=== PATIENT | female | born 1960 | race Caucasian/White ===

== ENCOUNTER 2021-09-02 18:45 | Emergency (ER) | payer BC ==
[2021-09-02 19:55] LABS: CHLORIDE,CL 103 mmol/L (98-107); SODIUM,NA 141 mmol/L (136-145)
[2021-09-02 19:56] LABS: ANION GAP 14.4 mmol/L (5-15)
--- NOTE | 2021-09-02 20:23 | CT ---
[id number] CT/CT Abdomen Pelvis WO IV EXAM: CT Abdomen Pelvis WO IV CLINICAL DATA: LT SIDED FLANK PAIN, HEMATURIA COMPARISON STUDY: March 08, 2020. FINDINGS: Lung bases are clear. The gallbladder is surgically absent. The liver, spleen, pancreas, adrenal glands are unremarkable. The appendix is visualized and appears normal. Colonic diverticulosis. Within the distal descending colon as well as the distal sigmoid colon there are few areas of pericolonic stranding in the region of diverticula. Additionally in the region of the descending: There is associated free fluid. No drainable fluid collection is identified. No free air. Scattered changes of spondylosis the spine. No fracture or osseous lesion. IMPRESSION: Acute uncomplicated descending colon and sigmoid diverticulitis. Wander Wolfe DO 09/02/212020 Thank you for allowing us to participate in the care of your patient.
[2021-09-02] MEDS ORDERED: Take Home: metroNIDAZOLE 500 MG Tab, 4 Tab Pack PO ONE (21:13)
[2021-09-02] MEDS ORDERED: Take Home: Ciprofloxacin 500 MG Tab, 2 Tab Pack PO ONE (21:13)
--- NOTE | 2021-09-02 21:48 | EDM.PDOC ---
ED HPI GENERAL MEDICAL PROBLEM - General Stated Complaint: PAIN ON L SIDE Time Seen by Provider: 09/02/21 19:40 Source of Information: Reports: Patient History Limitations: Reports: No Limitations - History of Present Illness INITIAL COMMENTS - FREE TEXT/NARRATIVE: Pt. presents to ER with complaints of L sided abdominal pain. Pt. states that the discomfort started shortly before presenting to the ER. She states that the discomfort is worse with movement and palpation. Pt. denies any dysuria or hematuria. Denies any chest pain or shortness of breath. No cough. No jaw, arm, neck or back pain. She denies any melena, hematochezia, or hematemesis. No nausea, vomiting, or diarrhea. Pt. denies any ill contacts. Onset: Today Onset Date: 09/02/21 Location: Reports: Abdomen Quality: Reports: Ache, Burning Severity: Moderate Associated Symptoms: Denies: Fever/Chills, Malaise Left Flank Pain Score (Numeric/FACES): 8 - Related Data Allergies Allergy/AdvReac Type Severity Reaction Status Date / Time penicillin Allergy Rash Verified 08/07/18 11:46 aspirin AdvReac Bleeding Verified 03/08/20 09:08 Home Meds: Home Meds Levothyroxine 75 mcg PO DAILY 05/19/15 [History] metFORMIN [Glucophage XR] 500 mg PO WITHDINNER 01/06/16 [History] Past Medical History Genitourinary History: Reports: UTI, Recurrent Endocrine/Metabolic History: Reports: Hypothyroidism ED ROS GENERAL - Review of Systems Review Of Systems: See Below Constitutional: Reports: No Symptoms. Denies: Fever, Chills, Malaise, Weakness, Fatigue HEENT: Reports: No Symptoms Respiratory: Reports: No Symptoms Cardiovascular: Reports: No Symptoms Endocrine: Reports: No Symptoms GI/Abdominal: Reports: Abdominal Pain. Denies: Black Stool, Bloody Stool, Constipation, Diarrhea, Distension, Hematemesis, Hematochezia, Melena, Nausea, Vomiting : Reports: No Symptoms Musculoskeletal: Reports: No Symptoms Skin: Reports: No Symptoms Neurological: Reports: No Symptoms Psychiatric: Reports: No Symptoms Hematologic/Lymphatic: Reports: No Symptoms Immunologic: Reports: No Symptoms ED EXAM, GENERAL - Physical Exam Exam: See Below Exam Limited By: No Limitations General Appearance: Alert, WD/WN, No Apparent Distress Respiratory/Chest: No Respiratory Distress, Lungs Clear, Normal Breath Sounds, No Accessory Muscle Use, Chest Non-Tender Cardiovascular: Normal Peripheral Pulses, Regular Rate, Rhythm, No Edema, No JVD, No Murmur Peripheral Pulses: 4+: Radial (L) GI/Abdominal: Soft, No Distention, No Mass, Tender, Other (No guarding or rebound. Area is diffusely tender to palpation. ) (Female) Exam: Deferred Rectal (Female) Exam: Deferred Back Exam: Normal Inspection, Full Range of Motion Extremities: Normal Inspection, Normal Range of Motion, Non-Tender, No Pedal Edema, Normal Capillary Refill Neurological: Alert, Oriented, CN II-XII Intact, Normal Cognition, Normal Reflexes, No Motor/Sensory Deficits Psychiatric: Normal Affect, Normal Mood Skin Exam: Warm, Dry, Intact, Normal Color, No Rash Course - Vital Signs Last Recorded V/S: Last Vital Signs Temp 37.0 C 09/02/21 19:40 Pulse 98 09/02/21 19:40 Resp 16 09/02/21 19:40 BP 138/85 09/02/21 19:40 Pulse Ox 97 09/02/21 19:40 - Orders/Labs/Meds Orders: Active Orders 24 hr Category Date Time Status CULTURE URINE [RM] Stat Lab 09/02/21 19:21 Received Labs: Laboratory Tests 09/02/21 09/02/21 09/02/21 Range/Units 19:21 19:29 19:29 WBC 12.4 H (4.0-10.0) x10^3/uL RBC 4.98 (4.00-5.50) x10^6/uL Hgb 14.3 (12.0-16.0) g/dL Hct 43.0 (33.0-47.0) % MCV 86.3 (78.0-93.0) fL MCH 28.7 (26.0-32.0) pg MCHC 33.3 (32.0-36.0) g/dL RDW Coeff of Bella 13.1 (10.0-15.0) % Plt Count 277 (130-400) x10^3/uL Immature Gran % (Auto) 0.20 (0.00-0.43) % Neut % (Auto) 76.0 (50.0-80.0) % Lymph % (Auto) 14.7 L (25.0-50.0) % Upton % (Auto) 7.8 (2.0-11.0) % Eos % (Auto) 1.0 (0.0-4.0) % Baso % (Auto) 0.3 (0.2-1.2) % Neut # (Auto) 9.5 H (1.8-7.7) x10^3/uL Lymph # (Auto) 1.8 (1.0-4.8) x10^3/uL Upton # (Auto) 1.0 H (0.0-0.8) x10^3/uL Eos # (Auto) 0.1 (0.0-0.5) x10^3/uL Baso # (Auto) 0.0 (0.0-0.2) x10^3/uL Immature Gran # (Auto) 0.02 (0.00-0.07) x10^3/uL Sodium 141 (136-145) mmol/L Potassium 4.4 (3.5-5.1) mmol/L Chloride 103 (98-107) mmol/L Carbon Dioxide 28 (21-32) mmol/L Anion Gap 14.4 (5-15) mmol/L BUN 14 (7-18) mg/dL Creatinine 0.7 (0.55-1.02) mg/dL Est Cr Clr Drug Dosing TNP Estimated GFR (MDRD) > 60 Glucose 113 H (70-99) mg/dL Calcium 9.3 (8.5-10.1) mg/dL Corrected Calcium 9.5 (8.5-10.1) mg/dL Phosphorus 3.7 (2.6-4.7) mg/dL Magnesium 2.2 (1.8-2.4) mg/dL Total Bilirubin 1.0 (0.2-1.0) mg/dL AST 27 (15-37) U/L ALT 55 (14-59) U/L Alkaline Phosphatase 123 H (46-116) U/L C-Reactive Protein 3.3 H (<=0.9) mg/dL Total Protein 7.7 (6.4-8.2) g/dL Albumin 3.8 (3.4-5.0) g/dL Globulin 3.9 Albumin/Globulin Ratio 0.97 Urine Color Light yellow (YELLOW) Urine Appearance Slightly cloudy H (CLEAR) Urine pH 6.0 (5.0-8.0) Ur Specific Raphine 1.010 Urine Protein Negative (NEGATIVE) mg/dL Urine Glucose (UA) Negative (NEGATIVE) mg/dL Urine Ketones Negative (NEGATIVE) mg/dL Urine Occult Blood Trace-intact H (NEGATIVE) Urine Nitrite Negative (NEGATIVE) Urine Bilirubin Negative (NEGATIVE) Urine Urobilinogen 0.2 (0.2) EU/dL Ur Leukocyte Esterase Small H (NEGATIVE) Urine RBC 5-10 H (NOT SEEN) /HPF Urine WBC 5-10 H (NOT SEEN) /HPF Ur Squamous Epith Cells Few H (NOT SEEN) /HPF Urine Bacteria Occasional H (NOT SEEN) /HPF Urine Mucus Few H (NOT SEEN) /LPF Meds: Medications Discontinued Medications Generic Name Dose Route Start Last Admin Trade Name Freq PRN Reason Stop Dose Admin Ciprofloxacin 1 packet 09/02/21 21:13 09/02/21 21:20 Take Home: Ciprofloxacin 500 Mg Tab, 2 Tab Pack PO 09/02/21 21:14 1 packet ONETIME ONE Administration Metronidazole 1 packet 09/02/21 21:13 09/02/21 21:20 Take Home: Metronidazole 500 Mg Tab, 4 Tab Pack PO 09/02/21 21:14 1 packet ONETIME ONE Administration - Radiology Interpretation Free Text/Narrative:: CT abdomen pelvis without contrast obtained. Acute uncomplicated descending colon and sigmoid diverticulitis noted. Departure - Departure Time of Disposition: 21:00 Disposition: Home, Self-Care 01 Clinical Impression: Diverticulitis, UTI (urinary tract infection) - Discharge Information Instructions: Diverticulitis, [id number], Urinary Tract Infection, Adult, Ciprofloxacin tablets, Metronidazole tablets or capsules, Probiotics Referrals: Shilpa Frost MD [Primary Care Provider] - Additional Instructions: Please excuse from work due to illness. Cipro 500mg 1 twice daily for 10 days Flagyl 500mg 1 tab three times daily for 10 days Minimize consumption of nuts and seeds. Increase consumption of water. Start miralax 1 capful every day to soften stool. Sepsis Event Note (ED) - Evaluation Sepsis Screening Result: No Definite Risk - Focused Exam Vital Signs: Vital Signs Temp Pulse Resp BP Pulse Ox 09/02/21 19:40 37.0 C 98 16 138/85 97 - Problem List Review Problem List Initiated/Reviewed/Updated: Yes - My Orders Last 24 Hours: My Active Orders 09/02/21 19:21 CULTURE URINE [RM] Stat - Assessment/Plan Last 24 Hours: My Active Orders 09/02/21 19:21 CULTURE URINE [RM] Stat Plan: Please excuse from work due to illness. Cipro 500mg 1 twice daily for 10 days Flagyl 500mg 1 tab three times daily for 10 days Minimize consumption of nuts and seeds. Increase consumption of water. Start miralax 1 capful every day to soften stool.
== END 2021-09-02 21:21 | disposition home or self-care (01) ==
LOC: VM.ED 18:45
DX: N39.0 Urinary tract infection, site not specified (principal); K57.32 Diverticulitis of large intestine without perforation or abscess without bleeding; E03.9 Hypothyroidism, unspecified; Z88.0 Allergy status to penicillin; Z88.8 Allergy status to other drugs, medicaments and biological substances; Z79.899 Other long term (current) drug therapy
CPT/HCPCS: 36415; 74176; 80053; 81001; 83735; 84100; 85025; 86140; 87086; 87088; 99284; A9270